=== PATIENT | female | born 1985 ===

== ENCOUNTER 2021-04-19 10:15 | Inpatient (IN) | payer OTHER ==
[2021-04-19] MEDS ORDERED: CABERGOLINE0.5 MG (13:37)
== END 2021-04-22 14:40 | disposition home or self-care (01) | DRG 741 ==
LOC: O/R 04-21 07:15 → SURH 04-21 10:15 → SURG 04-21 21:17
PROVIDERS: ADMIT Obstetrics & Gynecology Gynecologic Oncology; ATTEND Obstetrics & Gynecology Gynecologic Oncology
PROC: 0UT74ZZ Resection of Bilateral Fallopian Tubes, Percutaneous Endoscopic Approach (ICD-10-PCS; 2021-04-21)
PROC: 07BC4ZZ Excision of Pelvis Lymphatic, Percutaneous Endoscopic Approach (ICD-10-PCS; 2021-04-21)
PROC: 0UT94ZZ Resection of Uterus, Percutaneous Endoscopic Approach (ICD-10-PCS; principal; 2021-04-21 21:00)
DX: C54.1 Malignant neoplasm of endometrium (principal); N72 Inflammatory disease of cervix uteri